=== PATIENT | male | born 1945 | race Caucasian/White ===

== ENCOUNTER 2019-11-29 11:06 | Outpatient (RCR) | payer OTHER, SELFPAY | END 2019-12-12 23:59 | disposition home or self-care (01) | LOC: PULRHB 11:06 | PROVIDERS: PCP Emergency Medicine Emergency Medical Services; Visit Provider Emergency Medicine Emergency Medical Services | DX: J44.9 Chronic obstructive pulmonary disease, unspecified (principal) | CPT/HCPCS: 94618; G0424 ==

== ENCOUNTER 2019-12-13 06:00 | Outpatient (RCR) | payer OTHER, SELFPAY | END 2020-01-12 23:59 | disposition home or self-care (01) | LOC: PULRHB 06:00 | PROVIDERS: PCP Emergency Medicine Emergency Medical Services; Visit Provider Emergency Medicine Emergency Medical Services | DX: J44.9 Chronic obstructive pulmonary disease, unspecified (principal) | CPT/HCPCS: G0424 ==

== ENCOUNTER 2019-12-22 08:25 | Inpatient (IN) | payer OTHER, MEDICARE, SELFPAY ==
[2019-12-22] VITALS (11 sets, daily range): BP systolic 106–148; BP diastolic 76–94; PULSE 58–133; RESP 16–24; TEMP 36.4–37.2; O2SAT 93–100; BMI 24.4
--- NOTE | 2019-12-22 08:49 | XRR_ITS ---
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 HX of chf. HX of rheumatic fever TECHNIQUE: Imaging protocol: XR of the chest Views: 1 view. COMPARISON: PA Chest 1 [place] [id number] 04/27/2018 11:31 AM FINDINGS: Lungs: Mild interstitial prominence, without acute airspace disease. Nonspecific 3 cm nodular density overlying the left hilar region, warranting CT correlation. Pleural space: No pleural effusion. Heart/Mediastinum: Cardiac silhouette upper limits of normal in size. Vasculature: Calcification of the thoracic aorta. Bones/joints: Osteopenia and degenerative change. XR/XR chest 1V portable [id number] IMPRESSION: Nonspecific 3 cm nodular density overlying the left hilar region, warranting CT correlation.
--- NOTE | 2019-12-22 08:49 | ECG_ITS ---
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 Measurements Intervals [place] Rate: 151 P: IN: -1 QRS: 34 QRSD: 94 T: 53 QT: 278 QTc: 442 Interpretive Statements ATRIAL FIBRILLATION WITH RAPID VENTRICULAR RESPONSE POSSIBLE RIGHT VENTRICULAR CONDUCTION DELAY [RSR (QR) IN V1/V2] ST DEPRESSION, CONSIDER SUBENDOCARDIAL INJURY [0.1+ mV ST DEPRESSION] CRITICAL TEST RESULT INTERPRETATION BASED ON A DEFAULT AGE OF 40 YEARS Compared to ECG 04/27/2018 12:04:05 ST (T wave) deviation now present Left ventricular hypertrophy no longer present T-wave abnormality no longer present Electronically Signed On 12-22-2019 19:04:52 CDT by Raiza Nelson M.D. [id number]
[2019-12-22 08:56] LABS: Basophils # 0.1 10^3/uL (0.0-0.1); Basophils % 0.7 %; Eosinophils # 0.2 10^3/uL (0.0-0.8); Eosinophils % 2.4 %; Hematocrit 36.6 % (42.0-52.0); Lymphocytes # 2.3 10^3/uL (0.8-4.8); Lymphocytes % 33.4 %; Mean Corpuscular HGB Conc 32.8 g/dL (30.0-36.0); Mean Corpuscular Hemoglobin 32.9 pg (28.0-34.0); Mean Corpuscular Volume 100.3 fL (80-94); Monocytes % 14.2 %; Neutrophils # 3.33 10^3/uL (1.8-7.7); Neutrophils % 49.2 %; Nucleated Red Blood Cells % 0 %; Platelet Count 259 10^3/cmm (130-400); Red Blood Count 3.65 10^6/uL (4.1-5.3); Red Cell Distribution Width 12.3 % (12.1-15.1); White Blood Count 6.8 10^3/uL (4.0-10.0)
--- NOTE | 2019-12-22 08:57 | ED_ITS ---
HPI - Chest Pain General: Chief Complaint: Chest Pain Stated Complaint: CP Time Seen by Provider: 12/22/19 08:40 History of Present Illness: HPI narrative: This patient is a 74-year-old male presenting with chest pain and shortness of breath. He reports that his chest pain started at about 2 in the morning. He felt like there was a building sitting on his chest. The pain builds and builds until it was a 10 out of 10. He took 2 nitroglycerin tablets which relieved the pain. He still has a slight bit of tightness in his chest and still feels quite short of breath. He did not want a bother anyone so he did not call for help or come to the hospital. He did go to physical therapy this morning and when he told them about the chest pain they immediately sent him to the ED. He said he is never really had this severe chest pain. He has had heart failure in the past. He is not sure if he has had atrial fibrillation but has been told that he had some sort of irregular heartbeat in the past. He has a history of rheumatic heart fever. He denies C OPD or asthma but does have a barrel chest and some clubbing of his fingernails. MD complaint: chest pain and chest heaviness Pertinent past history: other (CHF) Onset (ago): hour(s) (7) Timing of current episode: episodic and now resolved Prior episodes: No Onset: during rest and awoke with symptoms Pain radiation: none Severity: severe Quality: heaviness Relieving factors: nitroglycerin Exacerbating factors: exertion Associated symptoms: Deny abdominal pain, dyspnea, fever(s), nausea or vomiting Review of Systems General: Reports: 10 or more systems reviewed and unremarkable except in HPI and below Const: Denies: fever(s), chills, fatigue or malaise Eyes: Denies: change in vision ENMT: Denies: odynophagia Card: Denies: chest pain or swelling of feet/ankles Resp: Denies: dyspnea, productive cough or non-productive cough GI: Denies: abdominal pain, nausea or vomiting : Denies: flank pain Musc: Denies: neck pain or back pain Skin/Breast: Denies: rash Neuro: Denies: headache(s), numbness in extremities or weakness in extremities Fredi/Lymph: Denies: easy bruising or easy bleeding PFSH ED PFSH: Medical History (Updated 12/22/19 @ 13:02 by Jack Toney MD) Atrial fibrillation Chronic kidney disease COPD (chronic obstructive pulmonary disease) Hypertension Pulmonary nodule Surgical History (Updated 12/22/19 @ 12:57 by Jack Toney MD) History of shoulder surgery Family History (Updated 12/22/19 @ 13:09 by Jack Toney MD) Other CAD (coronary artery disease) Social History (Updated 12/22/19 @ 12:57 by Jack Toney MD) Smoking and tobacco status: former smoker Alcohol intake: current Alcohol intake frequency: 3 or more drinks per day Alcohol use comment: Approximately 5 beers every night Substance/Drug Use: never Physical Exam Const: COMMON NORMALS: no acute distress, patient oriented x3, no limitations and alert GENERAL APPEARANCE: cooperative and comfortable HENMT: HEAD & SCALP: normal to inspection FACE & SINUS: normal facial exam Eye: GENERAL EYE: appearance normal, both eyes and all related structures Neck/C-Spine: COMMON NORMALS: supple and no meningeal signs Chest: COMMONS NORMALS: normal inspection of the chest Resp: EFFORT & INSPECTION: Yes tachypneic AUSCULTATION: wheezes lower bilaterally Cardio: COMMON NORMALS: No murmurs present (Cardio) RATE: tachycardic RHYTHM: abnormal rhythm irregularly irregular GI: COMMON NORMALS: Normal to inspection, nondistended, normoactive bowel sounds present, Soft to palpation and non-tender INSPECTION: Yes normal to inspection AUSCULTATION: Yes normoactive bowel sounds PALPATION: Yes Soft to palpation Back/Pelvis: COMMON NORMALS: thoracic and lumbar spine normal to inspection Extremity: COMMON NORMALS: normal to inspection Neuro: COMMON NORMALS: patient oriented x3, moves all extremities, no focal motor deficits and no sensory deficits noted SENSORIUM/ORIENTATION: Yes alert MENINGEAL SIGNS: Yes no meningeal signs Psych: COMMON NORMALS: mental status grossly normal, cooperative and normal affect Skin: COMMON NORMALS: no rashes or lesions noted and turgor normal GENERAL SKIN EXAM: no rashes or lesions noted and turgor normal Course Reevaluation(s): Reevaluation #1: Patient is doing much better. He is on Cardizem with a heart rate between 101 110. Blood pressure is 123/89 although he has had some mild hypotension with systolics in the 90s. His chest pain is gone. The nurse in the ED told me that a caregiver of some kind had called her and told her that the patient was not taking his medications. He told me as well as the nurse that he was taking his medicines and I asked him specifically again. He does say he is taking his medications as prescribed. He did [facility] me [facility]. He said he is not able to stay off his oxygen for more than about an hour at a time. He is not sure why they were planning to take him off the oxygen. Time: 12:18 Vital Signs: Vital signs: Vital Signs Temperature 97.6 F 12/23/19 04:00 Pulse Rate 110 H 12/23/19 04:00 Respiratory Rate 18 12/23/19 04:00 Blood Pressure 126/70 12/23/19 04:00 Pulse Oximetry 18 L 12/23/19 04:00 MDM - Chest Pain MDM Narrative: Medical decision making narrative: Atrial fibrillation with RVR. Associated with some severe crushing chest pain during the night. This troponins are flat in the ED and his rate is fairly well controlled on Cardizem. Will admit him for further management of his symptoms and further evaluation of his chest pain. He is on Eliquis although there is some question about whether he has been taking it. He says he has and his INR is slightly elevated. He was given aspirin in the ED. His rate control medication is currently metoprolol. Lab Data: Labs: Lab Results 12/22/19 12/22/19 12/22/19 Range/Units 08:40 08:40 08:40 WBC 6.8 (4.0-10.0) 10^3/ uL RBC 3.65 L (4.1-5.3) 10^6/u L Hgb 12.0 (11.7-16.6) g/dL Hct 36.6 L (42.0-52.0) % MCV 100.3 H (80-94) fL MCH 32.9 (28.0-34.0) pg MCHC 32.8 (30.0-36.0) g/dL RDW 12.3 (12.1-15.1) % Plt Count 259 (130-400) 10^3/c mm MPV 10.0 (7.4-10.4) fL Neut % (Auto) 49.2 % Lymph % (Auto) 33.4 % [place] % (Auto) 14.2 % Eos % (Auto) 2.4 % Baso % (Auto) 0.7 % Neut # (Auto) 3.33 (1.8-7.7) 10^3/u L Lymph # (Auto) 2.3 (0.8-4.8) 10^3/u L [place] # (Auto) 1.0 H (0.2-0.9) 10^3/u L Eos # (Auto) 0.2 (0.0-0.8) 10^3/u L Baso # (Auto) 0.1 (0.0-0.1) 10^3/u L Nucleated RBC % (a uto) 0 % Nucleated RBCs # 0.0 /100WBC PT (10.5-13.3) SECO NDS INR (0.8-1.2) Sodium 135 L (136-145) mmol/L Potassium 4.4 (3.5-5.1) mmol/L Chloride 100 (98-107) mmol/L Carbon Dioxide 23 (22-29) mmol/L Anion Gap 16.4 (5-19) BUN 25 H (8-23) mg/dL Creatinine 1.5 H (0.7-1.2) mg/dL Glucose 131 H (65-115) mg/dL Estimat Average Gl ucose Hemoglobin A1c (4.0-6.0) % Calculated Osmolal ity 279 L (285-295) mOsm/k g Calcium 9.9 (8.5-10.5) mg/dL Magnesium (1.7-2.3) mg/dL Total Bilirubin 0.4 (0.15-1.2) mg/dL AST 24 (0-40) U/L ALT 15 (0-41) U/L Alkaline Phosphata se 89 (40-130) IU/L Troponin T Baselin e 21 H (0-15) ng/L Troponin T 120 Min [place] (0-15) ng/L Delta Troponin T (0-10) ABS# NT-Pro-B Natriuret Pep 5845 H (0-125) pg/mL Total Protein 7.3 (6.6-8.7) g/dL Albumin 4.6 (3.5-5.2) g/dL Globulin 2.7 (1.3-4.6) g/dL TSH (0.27-4.20) uIU/ mL 12/22/19 12/22/19 12/22/19 Range/Units 08:40 08:52 08:52 WBC (4.0-10.0) 10^3/ uL RBC (4.1-5.3) 10^6/u L Hgb (11.7-16.6) g/dL Hct (42.0-52.0) % MCV (80-94) fL MCH (28.0-34.0) pg MCHC (30.0-36.0) g/dL RDW (12.1-15.1) % Plt Count (130-400) 10^3/c mm MPV (7.4-10.4) fL Neut % (Auto) % Lymph % (Auto) % [place] % (Auto) % Eos % (Auto) % Baso % (Auto) % Neut # (Auto) (1.8-7.7) 10^3/u L Lymph # (Auto) (0.8-4.8) 10^3/u L [place] # (Auto) (0.2-0.9) 10^3/u L Eos # (Auto) (0.0-0.8) 10^3/u L Baso # (Auto) (0.0-0.1) 10^3/u L Nucleated RBC % (a uto) % Nucleated RBCs # /100WBC PT 15.40 H (10.5-13.3) SECO NDS INR 1.18 (0.8-1.2) Sodium (136-145) mmol/L Potassium (3.5-5.1) mmol/L Chloride (98-107) mmol/L Carbon Dioxide (22-29) mmol/L Anion Gap (5-19) BUN (8-23) mg/dL Creatinine (0.7-1.2) mg/dL Glucose (65-115) mg/dL Estimat Average Gl ucose 105 Hemoglobin A1c 5.3 (4.0-6.0) % Calculated Osmolal ity (285-295) mOsm/k g Calcium (8.5-10.5) mg/dL Magnesium 2.1 (1.7-2.3) mg/dL Total Bilirubin (0.15-1.2) mg/dL AST (0-40) U/L ALT (0-41) U/L Alkaline Phosphata se (40-130) IU/L Troponin T Baselin e (0-15) ng/L Troponin T 120 Min [place] (0-15) ng/L Delta Troponin T (0-10) ABS# NT-Pro-B Natriuret Pep (0-125) pg/mL Total Protein (6.6-8.7) g/dL Albumin (3.5-5.2) g/dL Globulin (1.3-4.6) g/dL TSH 1.19 (0.27-4.20) uIU/ mL 12/22/19 Range/Units 10:36 WBC (4.0-10.0) 10^3/ uL RBC (4.1-5.3) 10^6/u L Hgb (11.7-16.6) g/dL Hct (42.0-52.0) % MCV (80-94) fL MCH (28.0-34.0) pg MCHC (30.0-36.0) g/dL RDW (12.1-15.1) % Plt Count (130-400) 10^3/c mm MPV (7.4-10.4) fL Neut % (Auto) % Lymph % (Auto) % [place] % (Auto) % Eos % (Auto) % Baso % (Auto) % Neut # (Auto) (1.8-7.7) 10^3/u L Lymph # (Auto) (0.8-4.8) 10^3/u L [place] # (Auto) (0.2-0.9) 10^3/u L Eos # (Auto) (0.0-0.8) 10^3/u L Baso # (Auto) (0.0-0.1) 10^3/u L Nucleated RBC % (a uto) % Nucleated RBCs # /100WBC PT (10.5-13.3) SECO NDS INR (0.8-1.2) Sodium (136-145) mmol/L Potassium (3.5-5.1) mmol/L Chloride (98-107) mmol/L Carbon Dioxide (22-29) mmol/L Anion Gap (5-19) BUN (8-23) mg/dL Creatinine (0.7-1.2) mg/dL Glucose (65-115) mg/dL Estimat Average Gl ucose Hemoglobin A1c (4.0-6.0) % Calculated Osmolal ity (285-295) mOsm/k g Calcium (8.5-10.5) mg/dL Magnesium (1.7-2.3) mg/dL Total Bilirubin (0.15-1.2) mg/dL AST (0-40) U/L ALT (0-41) U/L Alkaline Phosphata se (40-130) IU/L Troponin T Baselin e (0-15) ng/L Troponin T 120 Min [place] 17.47 H (0-15) ng/L Delta Troponin T -3.53 L (0-10) ABS# NT-Pro-B Natriuret Pep (0-125) pg/mL Total Protein (6.6-8.7) g/dL Albumin (3.5-5.2) g/dL Globulin (1.3-4.6) g/dL TSH (0.27-4.20) uIU/ mL EKG Data^: EKG 1: EKG interpretation date: 12/22/19 EKG interpretation time: 08:45 Interpretation: Atrial fibrillation with RVR at a rate of 151. Narrow QRS. Diffuse ST depression likely related to rate. EKG 2: EKG interpretation date: 12/22/19 EKG interpretation time: 12:29 Interpretation: Rate is 88. Rhythm is atrial fibrillation. QRS is narrow. QTc is normal. There is moderate ST depression particularly in the precordial leads and slight depression in the inferior leads. No acute ST elevation. 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
[2019-12-22] MEDS: aspirin 81 mg Chew Tablet 324 MG PO (09:09)
[2019-12-22] MEDS: sodium chloride 0.9% 250 ML 999 ML IV (09:10)
[2019-12-22 09:31] LABS: Troponin(5th) Baseline 21 ng/L (0-15)
[2019-12-22 10:11] LABS: Alanine Aminotransferase 15 U/L (0-41); Albumin Level 4.6 g/dL (3.5-5.2); Alkaline Phosphatase 89 IU/L (40-130); Anion Gap 16.4 (5-19); Aspartate Amino Transferase 24 U/L (0-40); Blood Urea Nitrogen 25 mg/dL (8-23); Calcium 9.9 mg/dL (8.5-10.5); Carbon Dioxide 23 mmol/L (22-29); Chloride 100 mmol/L (98-107); Globulin 2.7 g/dL (1.3-4.6); Glucose 131 mg/dL (65-115); NT Pro B Type Natriuretic Pept 5845 pg/mL (0-125); Osmolality Calculated 279 mOsm/kg (285-295); Potassium 4.4 mmol/L (3.5-5.1); Sodium 135 mmol/L (136-145); Total Bilirubin 0.4 mg/dL (0.15-1.2); Total Protein 7.3 g/dL (6.6-8.7)
--- NOTE | 2019-12-22 10:49 | ECG_ITS ---
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 Measurements Intervals [place] Rate: 88 P: RI: -1 QRS: 45 QRSD: 83 T: 55 QT: 369 QTc: 449 Interpretive Statements ATRIAL FIBRILLATION MODERATE ST DEPRESSION [0.05+ mV ST DEPRESSION] Compared to ECG 12/22/2019 08:45:34 No significant changes Electronically Signed On 12-22-2019 19:06:31 CDT by Raiza Nelson M.D. [email or web address]
[2019-12-22 11:21] LABS: Troponin 5 2HR 17.47 ng/L (0-15)
[2019-12-22 11:22] LABS: Troponin 5 2HR Delta -3.53 ABS# (0-10)
--- NOTE | 2019-12-22 11:27 | PC.NURSE ---
reports pt fell over a year ago in Jul. Then fell again over a month ago. At the time of the fall, he had double vision, and headace. He did not go checked out. Since that fall he has continued to have headace. Also got new glasses yesterday.
[2019-12-22 12:13] LABS: INR 1.18 (0.8-1.2)
--- NOTE | 2019-12-22 12:53 | PM.HP ---
Providers/Chief Complaint Admitting Physician: Jack Toney MD Primary Care Provider: Michael Louis DO Chief Complaint: CP History of Present Illness Suresh Riley is a 74 year old male that reports he woke up this morning with a heaviness of his chest and palpitations. He believes this was around 2 AM. It was associated with shortness of breath but he reports no nausea, diaphoresis. He went to rehabilitation this morning and was found to have an irregular fast heart rate and was immediately referred to the ER. No recent cough fever, or COVID exposure. Reports no blood in his stool black or tarry stools or hematemesis. Reports he does not usually have any chest discomfort. Denies any history of myocardial infarction. Reports that he does have some chronic lung disease for which he uses oxygen he is not sure of the liter requirement. He believes he has COPD. Cardizem drip was started in the emergency department with decrease in heart rate. Patient denies any chest discomfort currently. Review of Systems General: Reports: 10 or more systems reviewed and unremarkable except in HPI and below Const: Denies: fever(s) or chills Eyes: Denies: change in vision ENMT: Denies: throat pain Card: Reports: chest pain and irregular heart rhythm Resp: Reports: dyspnea; Denies: wheezing GI: Denies: abdominal pain : Denies: flank pain Musc: Denies: neck pain Skin/Breast: Denies: rash Neuro: Denies: headache(s) Psych: Denies: anxiety or depression Endo: Denies: polyuria Fredi/Lymph: Denies: easy bruising All/Imm: Denies: urticaria Medications/Allergies Home Medications Medication Instructions Recorded Confirmed Last Taken Type amlodipine 5 mg PO DAILY 12/22/19 12/22/19 12/22/19 History apixaban 5 mg PO BID 12/22/19 12/22/19 12/22/19 History cholecalciferol (vitamin D3) 1 tab PO DAILY 12/22/19 12/22/19 12/22/19 History furosemide [Lasix] 40 mg PO DAILY 12/22/19 12/22/19 12/22/19 History losartan 100 mg PO DAILY 12/22/19 12/22/19 12/22/19 History metoprolol tartrate 25 mg PO DAILY 12/22/19 12/22/19 12/22/19 History Allergies Allergy/AdvReac Type Severity Reaction Status Date / Time No Known Allergies Allergy Verified 12/22/19 08:39 PFSH Acute PFSH: Medical History (Updated 12/22/19 @ 13:02 by Jack Toney MD) Atrial fibrillation Chronic kidney disease COPD (chronic obstructive pulmonary disease) Hypertension Pulmonary nodule Surgical History (Updated 12/22/19 @ 12:57 by Jack Toney MD) History of shoulder surgery Family History (Updated 12/22/19 @ 13:09 by Jack Toney MD) Other CAD (coronary artery disease) Social History (Updated 12/22/19 @ 12:57 by Jack Toney MD) Smoking and tobacco status: former smoker Alcohol intake: current Alcohol intake frequency: 3 or more drinks per day Alcohol use comment: Approximately 5 beers every night Substance/Drug Use: never Vitals/I&O/Wt Last Vital Signs Temp 97.9 F 12/22/19 08:32 Pulse 105 H 12/22/19 12:16 Resp 16 12/22/19 12:16 BP 123/89 12/22/19 12:16 Pulse Ox 100 12/22/19 12:16 Weight last 48 hrs Weight 79.379 kg Physical Exam Narrative: EXAM NARRATIVE: General exam is a white male, no apparent distress. Currently on a Cardizem drip. Heart rate is 100. HEENT: Pupils equally round. Oropharynx clear. Neck is supple no lymphadenopathy or thyromegaly Cardiovascular irregular, irregular with controlled rate. No murmur Lungs clear no wheezing or crackles. Diminished breath sounds bilaterally. Abdomen is soft and was nontender with positive bowel sounds. No obvious organomegaly was deferred Extremities trace edema on the left. Right without edema. Pulses intact. No cyanosis or clubbing. Skin no rash Neuro no focal deficits Data : 12/22/19 08:40 12/22/19 08:40 Other data: LFTs normal. Troponin slightly high at 21 at baseline, recheck 17 Chest x-ray nodule left hilum. I believe this was seen before in a previous x-ray. On investigation CT scan about 6 months ago demonstrated an upper lobe nodule that needs follow-up soon. EKG demonstrated atrial fibrillation with rapid ventricular rate, 151, with some slight ST depression V4 through 6 and normal axis. A&P Assessment and plan (1) Atrial fibrillation: With rapid ventricular rate Cardizem initiated in the ER We will start patient's metoprolol, higher dose 25 mg twice daily and try to wean off Cardizem after he receives this tonight Continue Eliquis for stroke prevention Check TSH, magnesium Check echocardiogram Status: Acute (2) Elevated troponin: Appears to be type II Aspirin 81 mg daily Serial troponins Status: Acute (3) Chest pain: Resolved. Related to accelerated heart rate Could consider outpatient nuclear stress test Status: Acute Additional A&P Information COPD, no evidence of exacerbation. Reports he uses home oxygen Significant alcohol intake. Monitor for withdrawal. Initiate thiamine p.o. Mildly elevated glucose. Check A1c Hypertension. Continue ARB, lower dose. Hold Norvasc as rate limiting medicines may need to be increased to control atrial fibrillation. Past history of tobacco use Full code Eliquis will suffice for DVT prophylaxis Attestations Medical Necessity Statement*: Will need greater than 2 midnight stay for treatment of atrial fibrillation with rapid ventricular rate. 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
--- NOTE | 2019-12-22 13:30 | USCV_ITS ---
Suresh Riley Age: 74 Gender: M : 1945 Exam Date: 12/22/2019 14:55 Ordering Phys: Jack Toney MD Technologist: Francesca Montes Exam Location: [facility] [place] Indication: a fib BP: 116 / 78 HR: 77 Rhythm: Atrial fibrillation Technical Quality: Adequate MEASUREMENTS (Male / Female) Normal Values 2D ECHO LV Diastolic Diameter PLAX 5.9 cm 4.2 - 5.9 / 3.9 - 5.3 cm LV Systolic Diameter PLAX 4.5 cm IVS Diastolic Thickness 1.3 cm 0.6 - 1.0 / 0.6 - 0.9 cm IVS Systolic Thickness 1.8 cm LVPW Diastolic Thickness 1.2 cm 0.6 - 1.0 / 0.6 - 0.9 cm LVPW Systolic Thickness 2.0 cm LVOT Diameter 2.0 cm LV Ejection Fraction 2D Teich 44.1 % LV Ejection Fraction MOD 2C 61.4 % LV Ejection Fraction 2C AL 62.6 % LA Diameter 3.6 cm LA Width 3.4 cm LA Height 6.4 cm RA Width 3.4 cm RA Height 4.3 cm M-MODE LV Diastolic Diameter MM 5.1 cm 4.2 - 5.9 / 3.9 - 5.3 cm LV Systolic Diameter MM 3.2 cm LV Ejection Fraction MM Teich 67.0 % IVS Diastolic Thickness MM 0.9 cm 0.6 - 1.0 / 0.6 - 0.9 cm IVS Systolic Thickness MM 1.5 cm LVPW Diastolic Thickness MM 1.2 cm 0.6 - 1.0 / 0.6 - 0.9 cm LVPW Systolic Thickness MM 1.1 cm Aortic Annulus Diameter 4.0 cm LA Ao Ratio MM 1.0 MV E Point Septal Separation 0.6 cm DOPPLER AV Peak Velocity 160.0 cm/s LVOT Peak Velocity 88.0 cm/s AV Area Cont Eq vti 1.5 cm squared AV Area Cont Eq pk 1.7 cm squared MV Peak Velocity 104.0 cm/s MV Area PHT 4.2 cm squared Mitral E to A Ratio 2.0 MV E' Velocity 13.0 cm/s Mitral E to MV E' Ratio 9.0 Mitral E to LV E' Lateral Ratio 6.7 Mitral E to LV E' Septal Ratio 13.6 TR Peak Velocity 179.0 cm/s TR Peak Gradient 12.8 mmHg Right Atrial Pressure 3.0 mmHg Pulmonary Artery Systolic Pressu 15.8 mmHg PV Peak Velocity 70.0 cm/s RV Acceleration Time 0.1 s FINDINGS Left Ventricle Normal left ventricular cavity size. Normal left ventricular systolic function. No regional wall motion abnormalities. Left ventricular ejection fraction is estimated at 67%. Grade II/IV diastolic dysfunction, moderately elevated filling pressures. Right Ventricle The right ventricle is normal in size and function. Right Atrium The right atrium is normal in size. Left Atrium Mildly increased left atrial size. Mitral Valve Structurally normal mitral valve without significant stenosis or prolapse. There is no mitral regurgitation. Aortic Valve Moderate aortic valve calcification. No aortic valve stenosis. Mild aortic valve regurgitation. Tricuspid Valve Mild tricuspid valve regurgitation. Pulmonic Valve Structurally normal pulmonic valve without significant stenosis. There is no pulmonic regurgitation. Pericardium Normal pericardium without effusion. Aorta Normal ascending aorta dimension. CONCLUSIONS 1-Normal left ventricular cavity size. Normal left ventricular systolic function. No regional wall motion abnormalities. Left ventricular ejection fraction is estimated at 67%. Grade II/IV diastolic dysfunction, moderately elevated filling pressures. 2-Mildly increased left atrial size. 3-Moderate aortic valve calcification. No aortic valve stenosis. Mild aortic valve regurgitation. 4-Mildly increased left atrial size. 5-Mild tricuspid valve regurgitation. 6-There is no pericardial effusion. 7-Right atrial pressure is around 5 mm of mercury. 8-There are no prior echocardiogram studies to compare. Raiza Nelson MD (Electronically Signed) Final Date: 25 December 2019 17:26 S
--- NOTE | 2019-12-22 13:31 | PC.RESP ---
Smoking Cessation information has been given to patient and he is starting a Smoking Cessation class in January 2020. Patient is currently enrolled in Pulmonary Rehab and has been actively attending.
[2019-12-22 14:14] LABS: Magnesium 2.1 mg/dL (1.7-2.3); Thyroid Stimulating Hormone 1.19 uIU/mL (0.27-4.20)
--- NOTE | 2019-12-22 14:49 | ECG_ITS ---
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 Measurements Intervals [place] Rate: 63 P: TN: -1 QRS: 16 QRSD: 85 T: 47 QT: 408 QTc: 420 Interpretive Statements ATRIAL FIBRILLATION MINIMAL ST DEPRESSION [0.025+ mV ST DEPRESSION] ABNORMAL RHYTHM ECG Compared to ECG 12/22/2019 12:33:49 No significant changes Electronically Signed On 12-22-2019 19:06:40 CDT by Raiza Nelson M.D. [email or web address]
[2019-12-22 15:08] LABS: Troponin 5 6HR 15.54 ng/L (0-15)
[2019-12-22 15:10] LABS: Troponin 5 6HR Delta -5.46 ng/L (0-12)
[2019-12-22 17:26] LABS: Estmated Average Glucose 105; Hemoglobin A1C 5.3 % (4.0-6.0)
[2019-12-22] MEDS: metoprolol tartrate 25 mg Tablet PO (17:38)
[2019-12-22] MEDS: apixaban 5 mg Tablet PO (17:38)
--- NOTE | 2019-12-22 19:28 | PC.NURSE ---
Rounded on patient and patient is resting in bed and watching tv. Patient cardizem drip stopped at this time due to heartrate being 65 to 70 bpm. no complaints pf pain at this time.
[2019-12-23] VITALS (8 sets, daily range): BP systolic 107–126; BP diastolic 68–90; PULSE 79–136; RESP 16–25; TEMP 36.4–37.1; O2SAT 18–99
--- NOTE | 2019-12-23 02:51 | PC.NURSE ---
Patient heart rhythm remains in atrial fibrillation. Patient with movement heart rate with jump up to 140 bpm trend down to [address] Berg about patients heart rate. Provider stated she would put in orders. Will continue to monitor.
[2019-12-23] MEDS: metoprolol tartrate 1 mg/1 mL SDV 5 mL 2.5 MG IV (02:58)
[2019-12-23 04:02] LABS: Basophils % 0.5 %; Eosinophils # 0.2 10^3/uL (0.0-0.8); Eosinophils % 2.1 %; Hematocrit 33.4 % (42.0-52.0); Hemoglobin 10.9 g/dL (11.7-16.6); Lymphocytes # 2.1 10^3/uL (0.8-4.8); Lymphocytes % 24.6 %; Mean Corpuscular HGB Conc 32.6 g/dL (30.0-36.0); Mean Corpuscular Volume 101.2 fL (80-94); Mean Platelet Volume 10.1 fL (7.4-10.4); Monocytes % 12.1 %; Neutrophils # 5.09 10^3/uL (1.8-7.7); Neutrophils % 60.3 %; Nucleated Red Blood Cells % 0 %; Platelet Count 235 10^3/cmm (130-400); Red Cell Distribution Width 12.5 % (12.1-15.1); White Blood Count 8.4 10^3/uL (4.0-10.0)
--- NOTE | 2019-12-23 04:11 | PC.NURSE ---
Contacted Dr. Berg regarding patients heart rate still fluctuating between 110 and 135 bpm. Patient is not sustaining anything for any length of time and no complaints of chest pain or palpitations. Will continue to monitor patient unless new orders arrive.
[2019-12-23 04:30] LABS: Blood Urea Nitrogen 27 mg/dL (8-23); Calcium 9.2 mg/dL (8.5-10.5); Carbon Dioxide 26 mmol/L (22-29); Chloride 101 mmol/L (98-107); Glucose 115 mg/dL (65-115); Osmolality Calculated 280 mOsm/kg (285-295); Sodium 136 mmol/L (136-145)
--- NOTE | 2019-12-23 05:41 | PC.NURSE ---
End of shift PAtient remains alert and oriented at this time. Patient heart rate is 105 bpm. Patient denies any complaints of pain at this time. Patient has had a uneventful shift and rested well. Will continue to monitor.
--- NOTE | 2019-12-23 06:20 | PC.NURSE ---
Contacted Dr. Berg regarding patients Heart rate fluctuating between 120 and 140 and not recovering as fast. Asked about giving morning medications early. Provider said she will look at medications and adjust times. Will await orders. Will continue to monitor.
[2019-12-23] MEDS: metoprolol tartrate 25 mg Tablet PO ×2 (06:24→07:42)
[2019-12-23] MEDS: apixaban 5 mg Tablet PO ×2 (09:59→18:17)
[2019-12-23] MEDS: thiamine 100 mg Tablet PO (09:59)
[2019-12-23] MEDS: aspirin 81 mg EC Tablet PO (09:59)
[2019-12-23] MEDS: losartan 50 mg Tablet PO (09:59)
[2019-12-23] MEDS: FUROsemide 40 mg Tablet PO (09:59)
--- NOTE | 2019-12-23 12:42 | P.PN_ITS ---
Subjective Subjective: Interval history: Reports he feels okay currently. Can feel some palpitations. I have visited him in the morning when his heart rate is gone back up. This afternoon he has drifted down to around 100 but increases rapidly to 130 with any kind of exertion. Medications: Reviewed: Yes Vitals/I&O/Wt Last Vital Signs Temp 98.0 F 12/23/19 12:00 Pulse 93 12/23/19 12:00 Resp 18 12/23/19 12:00 BP 120/77 12/23/19 12:00 Pulse Ox 96 12/23/19 12:00 12/22/19 12/23/19 12/23/19 22:59 06:59 14:59 Intake Total 271.5 / 271.5 360 / 631.5 360 / 360 Output Total 710 / 710 750 / 1460 Balance -438.5 / -438.5 -390 / -828.5 360 / 360 Weight last 48 hrs Weight 79.379 kg Physical Exam Narrative: EXAM NARRATIVE: General exam is a white male, no apparent distress. Cardiovascular irregular, irregular with rate of approximately 105 and no murmur Lungs clear no wheezing or crackles. Diminished breath sounds bilaterally. Abdomen is soft and was nontender with positive bowel sounds. No obvious organomegaly Extremities with no cyanosis clubbing or edema Data : 12/23/19 03:35 12/23/19 03:35 A&P Assessment and plan (1) Atrial fibrillation: With rapid ventricular rate initially Metoprolol has been increased to 50 mg twice daily. He is still running somewhat high. Add diltiazem 30 mg every 8 hours We will try to avoid digoxin secondary to creatinine elevation Await echocardiogram Continue Eliquis TSH and magnesium level were checked and normal I have discontinued his Norvasc, and reduced his losartan significantly to try to prevent hypotension with medication adjustments Status: Acute (2) Elevated troponin: Appears to be type II Aspirin 81 mg daily Serial troponins Status: Acute (3) Chest pain: Resolved. Related to accelerated heart rate Could consider outpatient nuclear stress test Status: Acute Additional A&P Information COPD, no evidence of exacerbation. Reports he uses home oxygen Significant alcohol intake. Monitor for withdrawal. Initiate thiamine p.o. I see no indication of withdrawal currently. Mildly elevated glucose. Check A1c Hypertension. Continue ARB, lower dose. Norvasc discontinued as metoprolol increased and Cardizem being added. Past history of tobacco use Full code Eliquis will suffice for DVT prophylaxis Attestations Medical Necessity Statement*: Needs continued hospitalization for further adjustment of medication for atrial fibrillation with rapid ventricular rate. Coding Level of Care Code Acute Manager Respiratory for g Fwd Diagnoses Atrial fibrillation I48.91 Elevated troponin R79.89 Chest pain R07.9
[2019-12-23] MEDS: dilTIAZem 30 mg Tablet PO ×2 (13:13→18:17)
--- NOTE | 2019-12-23 13:54 | PC.CHAP ---
Pastoral Care Encounter/Spiritual Assessment Type of Contact [] Declined geopolitics teacher visit [] Patient/Family/Request visit [] Outpatient visit [] Follow-up visit [] Physician referral [] Code/Alert [X] Routine visit [] Staff referral [] Actively dying [] Patient sleeping [] Family support [] [] Out of room [] Palliative care [] [] Receiving care in room [] Pre-surgical visit [] Trauma [] Long length of stay [] ICU visit [] Other: Relational/Emotional Strength [] Patient feels connected with others/family/visitors/staff [] Distress [] Loneliness/isolation [] Abandonment Spirituality of Patient [] Person of [place] [] Attends Church of their [place]ia [] Believes in Prayer [] Reads Bible or Methodist materials [] There are Spiritual issues to be addressed Flower Stripper Interventions [] Prayer [] Active listening [] Non-anxious presence [] Spiritual/emotional support [] Crisis/trauma care [] Spiritual counseling [] Bereavement support [] Provided bereavement packet [] Provided Bible/devotional materials [] Provided toy/stuffed animal, coloring book to patient or family member [] Provided Communion [] Anointing/[place] [] Salvation [] Completed spiritual assessment [] Other: Impact on Illness or Injury [] Angry [] Fearful [] Anxious [] Often cries [] Exhaustion [] Unable to work [] Unable to attend methodist [] Unable to walk/stand [] Unable to read [] Unable to drive [] Unable to eat/drink [] Unable to sleep [] Unable to be with family [] Patient intubated [] Other: Summary Time spent with patient
[2019-12-23] MEDS: metoprolol tartrate 50 mg Tablet PO (18:17)
--- NOTE | 2019-12-23 18:21 | PC.NURSE ---
pt has episodes of rapid afib with rates 130's to 160...when stands to urinate.pt does become diaphoretic..but no sob and bp remains stable.hr decreases to 90's-110 when returns to bed.medication adjustments made today.
--- NOTE | 2019-12-23 20:43 | PC.NURSE ---
Rounding: Patient is resting in bed. Patient denies any pain or needs at this time. Patient call light is within reach and bed in low postion with side rails up x2. Patient is alert and oriented at this time. Will continue to monitor.
[2019-12-24] MEDS: dilTIAZem 30 mg Tablet PO ×2 (02:22→06:23)
[2019-12-24 03:42] LABS: Basophils % 0.5 %; Eosinophils # 0.2 10^3/uL (0.0-0.8); Eosinophils % 2.8 %; Hematocrit 34.3 % (42.0-52.0); Hemoglobin 11.1 g/dL (11.7-16.6); Lymphocytes # 2.4 10^3/uL (0.8-4.8); Lymphocytes % 31.4 %; Mean Corpuscular HGB Conc 32.4 g/dL (30.0-36.0); Mean Corpuscular Hemoglobin 33.4 pg (28.0-34.0); Mean Corpuscular Volume 103.3 fL (80-94); Mean Platelet Volume 9.9 fL (7.4-10.4); Monocytes # 0.9 10^3/uL (0.2-0.9); Monocytes % 11.7 %; Neutrophils # 4.16 10^3/uL (1.8-7.7); Neutrophils % 53.5 %; Nucleated Red Blood Cells % 0 %; Platelet Count 226 10^3/cmm (130-400); Red Blood Count 3.32 10^6/uL (4.1-5.3); Red Cell Distribution Width 12.4 % (12.1-15.1); White Blood Count 7.8 10^3/uL (4.0-10.0)
[2019-12-24 03:54] VITALS: BP 101/66; PULSE 65; RESP 21; TEMP 36.8; O2SAT 98
[2019-12-24 04:07] LABS: Anion Gap 13.2 (5-19); Blood Urea Nitrogen 29 mg/dL (8-23); Calcium 9.1 mg/dL (8.5-10.5); Carbon Dioxide 26 mmol/L (22-29); Chloride 102 mmol/L (98-107); Glucose 107 mg/dL (65-115); Magnesium 2.1 mg/dL (1.7-2.3); Osmolality Calculated 282 mOsm/kg (285-295); Potassium 4.2 mmol/L (3.5-5.1); Sodium 137 mmol/L (136-145)
--- NOTE | 2019-12-24 06:03 | PC.NURSE ---
End of shift: PAtient has rested well this shift. Patient has had no complaints of palpitations or pain. Patient remains alert and oriented. Call light is within reach, bed in low position, and side rails up x2. Will continue to monitor.
[2019-12-24] MEDS: metoprolol tartrate 50 mg Tablet PO (06:23)
[2019-12-24 07:14] VITALS: BP 102/52; PULSE 71; RESP 15; TEMP 36.7; O2SAT 96
--- NOTE | 2019-12-24 08:13 | PC.NURSE ---
pt wall [facility] hallway on [facility] assment heart rate high as 106
[2019-12-24 09:01] VITALS: PULSE 71; RESP 16; O2SAT 98
[2019-12-24] MEDS: thiamine 100 mg Tablet PO (09:22)
[2019-12-24] MEDS: aspirin 81 mg EC Tablet PO (09:22)
[2019-12-24] MEDS: FUROsemide 40 mg Tablet PO (09:22)
[2019-12-24] MEDS: apixaban 5 mg Tablet PO (09:22)
[2019-12-24 10:59] VITALS: BP 112/72; PULSE 86; RESP 18; TEMP 36.4; O2SAT 93
[2019-12-24] MEDS: dilTIAZem ER (24HR) 120 mg Capsule PO (11:36)
--- NOTE | 2019-12-24 13:29 | PM.DCS ---
Discharge Providers Date of Admission: 12/22/19 11:45 Date of Discharge: December 24, 2019 Attending Provider at Admission: Jack Toney MD Attending Provider at Discharge: Jack Toney MD Primary Care Provider: Michael Louis DO Diagnoses at Discharge Discharge Diagnosis (1) Atrial fibrillation: Status: Acute Problem details: Rate controlled on metoprolol and Cardizem (2) Elevated troponin: Status: Acute Problem details: Type II. Nuclear stress test as an outpatient (3) Chest pain: Status: Acute Problem details: Resolved Reason for Visit Reason for Visit: CP Hospital Course Hospital Course: Suresh is a 74-year-old white male who presents with palpitations and chest discomfort. He was found to be in atrial fibrillation with rapid ventricular rate. Troponin was high but had no significant delta. EKG demonstrated nonspecific ST-T wave changes associated with his atrial fibrillation. He was placed in the hospital on a Cardizem drip. His Eliquis was continued for anticoagulation. His metoprolol was increased. This did not control his rhythm adequately so Cardizem was added at 30 mg every 6 hours, and converted to Cardizem CD at 120 mg daily. With these medicines his heart rate was controlled at 85, and even with ambulation heart rate was less than 110. As his heart rate was stable and he had no chest discomfort and troponin showed no significant delta he was discharged home on December 23 for follow-up with cardiology as well as his primary care provider. He will get a nuclear stress test as an outpatient secondary to chest discomfort and elevated troponin. He will return for any chest discomfort. Physical Exam Narrative: EXAM NARRATIVE: General exam no apparent distress Cardiovascular irregular irregular with controlled rate Lungs clear Abdomen is soft with positive bowel sounds Extremities no cyanosis clubbing or edema Discharge Data Data Completed and Pending: Completed Studies During Hospitalization Category Date Time Status XR chest 1V galileo ble [id number] Stat Exams 12/22/19 08:49 Completed Pending at discharge Category Date Time Status CV echo complete* [id number] Routine Ultrasound 12/22/19 13:30 Taken Labs from last 24 hours 12/24/19 12/24/19 03:22 03:22 WBC 7.8 RBC 3.32 L Hgb 11.1 L Hct 34.3 L MCV 103.3 H MCH 33.4 MCHC 32.4 RDW 12.4 Plt Count 226 MPV 9.9 Neut % (Auto) 53.5 Lymph % (Auto) 31.4 [place] % (Auto) 11.7 Eos % (Auto) 2.8 Baso % (Auto) 0.5 Neut # (Auto) 4.16 Lymph # (Auto) 2.4 [place] # (Auto) 0.9 Eos # (Auto) 0.2 Baso # (Auto) 0.0 Nucleated RBC % (a uto) 0 Nucleated RBCs # 0.0 Sodium 137 Potassium 4.2 Chloride 102 Carbon Dioxide 26 Anion Gap 13.2 BUN 29 H Creatinine 1.7 H Glucose 107 Calculated Osmolal ity 282 L Calcium 9.1 Magnesium 2.1 Vitals: Last Vital Signs Temp 97.6 F 12/24/19 10:59 Pulse 86 12/24/19 10:59 Resp 18 12/24/19 10:59 BP 112/72 12/24/19 10:59 Pulse Ox 93 12/24/19 10:59 Discharge Plan Discharge Patient Disposition: Home, Self-Care Condition: Stable Prescriptions: New aspirin 81 mg Tablet,Delayed Release (Dr/Ec) 81 mg PO DAILY Qty: 30 RF: 0 metoprolol tartrate 50 mg Tablet 50 mg PO Q12H Qty: 60 RF: 0 diltiazem HCl 120 mg Capsule,Extended Release 24hr 120 mg PO DAILY Qty: 30 RF: 0 Continued furosemide [Lasix] 40 mg Tablet 40 mg PO DAILY RF: 0 apixaban 5 mg Tablet 5 mg PO BID RF: 0 cholecalciferol (vitamin D3) 1 tab PO DAILY RF: 0 Discontinued amlodipine 5 mg Tablet 5 mg PO DAILY RF: 0 losartan 100 mg Tablet 100 mg PO DAILY RF: 0 metoprolol tartrate 25 mg Tablet 25 mg PO DAILY RF: 0 Referrals: Raiza Nelson MD [Physician] - 2 weeks Michael Louis DO [Primary Care Provider] - 4-7 days Discharge Diet: Cardiac Discharge Activity: Increase activity as tolerated Activity Restrictions/Additional Instructions: Resume your home oxygen at 2 L Return for any chest discomfort Nuclear stress test to be arranged later this week. Discharge Attestations Time Spent in Discharge Care*: greater than 30 min Quality Metrics Clinical Quality Measures During this hospital stay, did patient experience: None Coding Level of Care Code Acute Seating Captain for [facility] Fwd Diagnoses Atrial fibrillation I48.91 Elevated troponin R79.89 Chest pain R07.9
[2019-12-24 13:55] VITALS: BP 112/72; PULSE 86; RESP 18; TEMP 36.4; O2SAT 93
== END 2019-12-24 15:14 | disposition home or self-care (01) | DRG 282 ==
LOC: ER 09:08 → CSU 12:16
PROVIDERS: Admitting Provider Internal Medicine; Emergency Provider Emergency Medicine; PCP Emergency Medicine Emergency Medical Services; Visit Provider Internal Medicine
DX: I48.91 Unspecified atrial fibrillation (principal); I21.A1 Myocardial infarction type 2; Z79.01 Long term (current) use of anticoagulants; J44.9 Chronic obstructive pulmonary disease, unspecified; Z87.891 Personal history of nicotine dependence; F10.229 Alcohol dependence with intoxication, unspecified; N18.9 Chronic kidney disease, unspecified; I12.9 Hypertensive chronic kidney disease with stage 1 through stage 4 chronic kidney disease, or unspecified chronic kidney disease
CPT/HCPCS: 12345; 36415; 71045; 80048; 80053; 83036; 83735; 83880; 84443; 84484; 85025; 85610; 93005; 93306; 96375; 99283; J3490; J7050

== ENCOUNTER 2020-01-30 20:00 | Outpatient (CLI) | payer OTHER, SELFPAY | END 2020-01-30 20:01 | disposition home or self-care (01) | LOC: SLEEP 01-31 11:18 | PROVIDERS: PCP Emergency Medicine Emergency Medical Services; Visit Provider Emergency Medicine Emergency Medical Services | DX: R53.82 Chronic fatigue, unspecified (principal); G47.33 Obstructive sleep apnea (adult) (pediatric); R06.83 Snoring; I48.91 Unspecified atrial fibrillation | CPT/HCPCS: 95810 ==

== ENCOUNTER 2020-02-12 12:00 | Emergency (ER) | payer OTHER, SELFPAY ==
[2020-02-12 12:02] VITALS: BP 112/75; PULSE 71; RESP 20; TEMP 36.5; O2SAT 100; BMI 24.5
--- NOTE | 2020-02-12 12:04 | XRR_ITS ---
PROCEDURE INFORMATION: Exam: XR Chest, 1 View Exam date and time: 02/12/2020 12:25 PM Age: 75 years old Clinical indication: Other: Palpitations TECHNIQUE: Imaging protocol: XR of the chest Views: 1 view. COMPARISON: CR XR chest 1V portable [id number] 12/22/2019 8:56 AM FINDINGS: Lungs: Emphysema Lungs are well aerated without a focal area of consolidation. Pleural space: Unremarkable. No pleural effusion. No pneumothorax. Heart/Mediastinum: The cardiac silhouette appears enlarged, some of which is magnification related to the AP projection. Bones/joints: Unremarkable. XR/XR chest 1V portable [id number] IMPRESSION: Lungs are well aerated without a focal area of consolidation.
--- NOTE | 2020-02-12 12:04 | ECG_ITS ---
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 Measurements Intervals [place] Rate: 107 P: FL: -1 QRS: 24 QRSD: 98 T: 51 QT: 326 QTc: 435 Interpretive Statements ATRIAL FIBRILLATION WITH RAPID VENTRICULAR RESPONSE POSSIBLE RIGHT VENTRICULAR CONDUCTION DELAY [RSR (QR) IN V1/V2] ABNORMAL RHYTHM ECG Compared to ECG 12/22/2019 16:06:45 ST (T wave) deviation no longer present Electronically Signed On 02-12-2020 23:42:21 CDT by Belen Seth M.D. [email or web address]
[2020-02-12 12:15] LABS: Basophils # 0.1 10^3/uL (0.0-0.1); Basophils % 0.7 %; Eosinophils # 0.2 10^3/uL (0.0-0.8); Hematocrit 33.7 % (42.0-52.0); Hemoglobin 11.2 g/dL (11.7-16.6); Lymphocytes # 2.3 10^3/uL (0.8-4.8); Lymphocytes % 30.1 %; Mean Corpuscular HGB Conc 33.2 g/dL (30.0-36.0); Mean Corpuscular Hemoglobin 32.7 pg (28.0-34.0); Mean Corpuscular Volume 98.5 fL (80-94); Mean Platelet Volume 9.7 fL (7.4-10.4); Monocytes # 1.1 10^3/uL (0.2-0.9); Monocytes % 13.7 %; Neutrophils # 4.08 10^3/uL (1.8-7.7); Neutrophils % 53.1 %; Nucleated Red Blood Cells % 0 %; Platelet Count 254 10^3/cmm (130-400); Red Blood Count 3.42 10^6/uL (4.1-5.3); Red Cell Distribution Width 12.3 % (12.1-15.1); White Blood Count 7.7 10^3/uL (4.0-10.0)
[2020-02-12 12:26] VITALS: BP 90/60; PULSE 76; RESP 22; O2SAT 100
[2020-02-12] MEDS: sodium chloride 0.9% 1,000 ML 999 ML IV (12:37)
[2020-02-12 13:00] LABS: Troponin(5th) Baseline 17 ng/L (0-15)
[2020-02-12 13:05] LABS: Alanine Aminotransferase 16 U/L (0-41); Albumin Level 3.9 g/dL (3.5-5.2); Alkaline Phosphatase 102 IU/L (40-130); Anion Gap 14.9 (5-19); Aspartate Amino Transferase 21 U/L (0-40); Blood Urea Nitrogen 16 mg/dL (8-23); Calcium 9.3 mg/dL (8.5-10.5); Carbon Dioxide 26 mmol/L (22-29); Chloride 93 mmol/L (98-107); Globulin 2.7 g/dL (1.3-4.6); Glucose 105 mg/dL (65-115); Lipase 36 U/L (13-60); NT Pro B Type Natriuretic Pept 7170 pg/mL (0-125); Osmolality Calculated 265 mOsm/kg (285-295); Potassium 4.9 mmol/L (3.5-5.1); Sodium 129 mmol/L (136-145); Total Bilirubin 0.3 mg/dL (0.15-1.2); Total Protein 6.6 g/dL (6.6-8.7)
[2020-02-12 13:13] LABS: INR 1.33 (0.8-1.2)
--- NOTE | 2020-02-12 13:16 | W.ED.ARRPALP ---
HPI - Arrhythmia/Palpitations General: Chief Complaint: Arrhythmia/Palpitations Stated Complaint: AFIB with RVR Time Seen by Provider: 02/12/20 12:02 Source: patient and EMS Mode of arrival: EMS Limitations: no limitations History of Present Illness: HPI narrative: Mr. Riley is a nice 75-year-old male who comes in by EMS with report of A. fib with RVR. Patient was at the [facility] for routine visit and states he has no symptoms. They noticed a blood pressure of 90/50 with a heart rate of 120 because of this they called EMS. EMS does not report any low blood pressures in route. Patient states he feels fine otherwise. He specifically denies chest pain, shortness of breath, cough, edema, lightheadedness, dizziness, syncope, near syncope or any other complaints. Patient states that he was just going in for routine visit today otherwise he felt fine. EMS did not perform any interventions in route. Associated symptoms: Deny diaphoresis, nausea, pre-syncope, syncope or vomiting Review of Systems Const: Denies: fever(s), chills, body aches, fatigue, malaise or diaphoresis Eyes: Denies: change in vision, blurry vision, photophobia, eye discomfort, eye discharge or eye redness ENMT: Denies: throat pain, odynophagia, hoarseness, swelling of lips/tongue, ear or mastoid pain, ear discharge, change in hearing or nasal discharge Card: Denies: chest pain, palpitations, irregular heart rhythm, edema, lightheadedness, syncope, pre-syncope, dyspnea on exertion or orthopnea Resp: Denies: dyspnea, productive cough, non-productive cough, wheezing, hemoptysis or chest congestion GI: Denies: abdominal pain, nausea, vomiting, hematemesis, coffee ground emesis, heartburn, diarrhea, constipation, GI cramping, hematochezia or melena : Denies: flank pain, dysuria, urinary frequency, urinary urgency or hematuria Musc: Denies: neck pain, back pain, extremity pain, extremity swelling, joint pain, joint swelling, joint redness, joint warmth or joint stiffness Skin/Breast: Denies: rash, pruritus, erythema or skin tenderness Neuro: Denies: headache(s), numbness in extremities, weakness in extremities, sensory changes, lack of coordination, difficulty walking, dizziness, vertigo, confusion, Slurred speech present or seizure-like activity Fredi/Lymph: Denies: easy bruising, easy bleeding, petechiae, purpura or enlarged lymph nodes All/Imm: Denies: urticaria, throat swelling, tongue swelling, facial swelling or acute wheezing PFSH ED PFSH: Medical History (Updated 02/12/20 @ 14:22 by Kay Connor) Atrial fibrillation Rate controlled on metoprolol and Cardizem Chronic kidney disease COPD (chronic obstructive pulmonary disease) Hypertension Pulmonary nodule Varicose vein of leg Surgical History History of shoulder surgery Family History Other CAD (coronary artery disease) Social History Smoking and tobacco status: former smoker Alcohol intake: current Alcohol intake frequency: 3 or more drinks per day Physical Exam Const: COMMON NORMALS: no acute distress, patient oriented x3, no limitations, healthy appearing and well nourished GENERAL APPEARANCE: cooperative, well kempt and well developed HENMT: COMMON NORMALS: normocephalic, atraumatic, external ears normal, EAC's normal and Normal external nose present HEAD & SCALP: normal to inspection, normocephalic and atraumatic FACE & SINUS: normal facial exam and face symmetric NOSE: Normal external nose present and Normal nares present EXTERNAL EAR: Yes external ears normal EXTERNAL AUDITORY CANAL: EAC's normal MOUTH: Normal oral and palatal mucosa present, lip normal and tongue normal Eye: COMMON NORMALS: Equal, round and reactive pupils present and conjunctivae normal GENERAL EYE: appearance normal, both eyes and all related structures ALIGNMENT: Yes alignment normal PERIORBITAL: periorbital findings normal EYELID: eyelids normal CONJUNCTIVA: Yes conjunctivae normal SCLERA: sclerae normal PUPIL: Yes Equal, round and reactive pupils present Neck/C-Spine: COMMON NORMALS: full ROM, no lymphadenopathy, supple, no meningeal signs and no JVD GENERAL: Yes normal visual inspection and Yes trachea midline Chest: COMMONS NORMALS: normal inspection of the chest and normal palpation of entire chest wall Resp: COMMON NORMALS: normal respiratory effort, No retractions, No use of accessory muscles and clear to auscultation bilaterally EFFORT & INSPECTION: Yes able to speak in complete sentences and Yes symmetric chest movement AUSCULTATION: clear to auscultation bilaterally, no crackles, no rales, no rhonchi and no wheezes Cardio: COMMON NORMALS: no JVD, S1 normal heart sound present and S2 normal heart sound present RATE: tachycardic RHYTHM: abnormal rhythm irregularly irregular HEART SOUNDS: S1 normal heart sound present, S2 normal heart sound present, no click, no gallops, no murmurs, no rubs and abnormal split S2 GI: COMMON NORMALS: Soft to palpation and No hepatosplenomegaly present PALPATION: Yes Soft to palpation, No Tenderness to palpation present (GI), No Guarding due to palpation present (GI), No Rigid due to palpation, Yes No hepatosplenomegaly present, No Hernia present, No Palpable mass present and No Pulsatile mass present : COMMON NORMALS: Yes no CVA tenderness BLADDER/KIDNEY EXAM: Yes no CVA tenderness Back/Pelvis: COMMON NORMALS: no CVA tenderness, thoracic and lumbar spine normal to inspection, no thoracic nor lumbar tenderness and thoraco-lumbar ROM normal Extremity: COMMON NORMALS: normal to inspection, full ROM, capillary refill normal, no joint enlargement, no clubbing, cyanosis or edema and no calf tenderness Neuro: COMMON NORMALS: patient oriented x3, CN's II-XII intact bilaterally, moves all extremities, no focal motor deficits and no sensory deficits noted MENINGEAL SIGNS: Yes no meningeal signs SPEECH: speech normal Psych: COMMON NORMALS: mental status grossly normal, Normal thought process present, cooperative, normal affect, speech normal and activity/motor behavior normal APPEARANCE: Yes well kempt SPEECH: Yes normal speech THOUGHT PROCESS: Normal thought process present Skin: COMMON NORMALS: no rashes or lesions noted, turgor normal, no jaundice, no petechiae and no mottling GENERAL SKIN EXAM: no rashes or lesions noted and turgor normal Course Vital Signs: Vital signs: Vital Signs Temperature 97.7 F 02/12/20 12:02 Pulse Rate 74 02/12/20 14:39 Respiratory Rate 20 H 02/12/20 14:39 Blood Pressure 111/79 02/12/20 14:39 Pulse Oximetry 99 02/12/20 14:39 MDM - Arrhythmia/Palpitations MDM Narrative: Medical decision making narrative: Mr. Riley is a nice 75-year-old male who comes in at the behest of the PA after he was found to be in A. fib with RVR. The patient's blood pressures have been stable here. 1 dose of IV Cardizem and his blood pressure is stable and his heart rate is improved. There is no sign of [place]. Patient is asymptomatic with this. I have offered further evaluation and care here to include observation the hospital but the patient adamantly refuses he states hell no I wanna go home . Patient understands he can return here if her symptoms change or worsen but at this time he is adamant he wants to be discharged. Lab Data: Attestation: I reviewed the patient's lab results. Labs: Lab Results 02/12/20 02/12/20 02/12/20 Range/Units 11:50 11:50 11:50 WBC 7.7 (4.0-10.0) 10^3/ uL RBC 3.42 L (4.1-5.3) 10^6/u L Hgb 11.2 L (11.7-16.6) g/dL Hct 33.7 L (42.0-52.0) % MCV 98.5 H (80-94) fL MCH 32.7 (28.0-34.0) pg MCHC 33.2 (30.0-36.0) g/dL RDW 12.3 (12.1-15.1) % Plt Count 254 (130-400) 10^3/c mm MPV 9.7 (7.4-10.4) fL Neut % (Auto) 53.1 % Lymph % (Auto) 30.1 % [place] % (Auto) 13.7 % Eos % (Auto) 2.0 % Baso % (Auto) 0.7 % Neut # (Auto) 4.08 (1.8-7.7) 10^3/u L Lymph # (Auto) 2.3 (0.8-4.8) 10^3/u L [place] # (Auto) 1.1 H (0.2-0.9) 10^3/u L Eos # (Auto) 0.2 (0.0-0.8) 10^3/u L Baso # (Auto) 0.1 (0.0-0.1) 10^3/u L Nucleated RBC % (a uto) 0 % Nucleated RBCs # 0.0 /100WBC PT 16.90 H (12.1-14.9) SECO NDS INR 1.33 H (0.8-1.2) Sodium 129 L (136-145) mmol/L Potassium 4.9 (3.5-5.1) mmol/L Chloride 93 L (98-107) mmol/L Carbon Dioxide 26 (22-29) mmol/L Anion Gap 14.9 (5-19) BUN 16 (8-23) mg/dL Creatinine 1.4 H (0.7-1.2) mg/dL GFR Calculation Not Reportable Glucose 105 (65-115) mg/dL Calculated Osmolal ity 265 L (285-295) mOsm/k g Calcium 9.3 (8.5-10.5) mg/dL Magnesium 2.0 (1.7-2.3) mg/dL Total Bilirubin 0.3 (0.15-1.2) mg/dL AST 21 (0-40) U/L ALT 16 (0-41) U/L Alkaline Phosphata se 102 (40-130) IU/L Troponin T Baselin e (0-15) ng/L Troponin T 120 Min [place] (0-15) ng/L Delta Troponin T (0-10) ABS# NT-Pro-B Natriuret Pep 7170 H (0-125) pg/mL Total Protein 6.6 (6.6-8.7) g/dL Albumin 3.9 (3.5-5.2) g/dL Globulin 2.7 (1.3-4.6) g/dL Lipase 36 (13-60) U/L Urine Color (Yellow) Urine Appearance (CLEAR) Urine pH (5-7) Ur Specific Gravit y (1.005-1.030) Urine Protein (Negative) Urine Glucose (UA) (Normal) Urine Ketones (Negative) Urine Blood (Negative) Urine Nitrate (Negative) Urine Bilirubin (NEGATIVE) Urine Urobilinogen (Negative) mg/dL Ur Leukocyte [place] (Negative) Urine RBC (0-2) /hpf Urine WBC (0-5) /hpf Ur Squamous Epith Cells (0-5) Amorphous Sediment Urine Bacteria (NONE) 08/02/12/20 02/12/20 Range/Units 11:50 12:55 13:45 WBC (4.0-10.0) 10^3/ uL RBC (4.1-5.3) 10^6/u L Hgb (11.7-16.6) g/dL Hct (42.0-52.0) % MCV (80-94) fL MCH (28.0-34.0) pg MCHC (30.0-36.0) g/dL RDW (12.1-15.1) % Plt Count (130-400) 10^3/c mm MPV (7.4-10.4) fL Neut % (Auto) % Lymph % (Auto) % [place] % (Auto) % Eos % (Auto) % Baso % (Auto) % Neut # (Auto) (1.8-7.7) 10^3/u L Lymph # (Auto) (0.8-4.8) 10^3/u L [place] # (Auto) (0.2-0.9) 10^3/u L Eos # (Auto) (0.0-0.8) 10^3/u L Baso # (Auto) (0.0-0.1) 10^3/u L Nucleated RBC % (a uto) % Nucleated RBCs # /100WBC PT (12.1-14.9) SECO NDS INR (0.8-1.2) Sodium (136-145) mmol/L Potassium (3.5-5.1) mmol/L Chloride (98-107) mmol/L Carbon Dioxide (22-29) mmol/L Anion Gap (5-19) BUN (8-23) mg/dL Creatinine (0.7-1.2) mg/dL GFR Calculation Glucose (65-115) mg/dL Calculated Osmolal ity (285-295) mOsm/k g Calcium (8.5-10.5) mg/dL Magnesium (1.7-2.3) mg/dL Total Bilirubin (0.15-1.2) mg/dL AST (0-40) U/L ALT (0-41) U/L Alkaline Phosphata se (40-130) IU/L Troponin T Baselin e 17 H (0-15) ng/L Troponin T 120 Min [place] 15.13 H (0-15) ng/L Delta Troponin T -1.87 L (0-10) ABS# NT-Pro-B Natriuret Pep (0-125) pg/mL Total Protein (6.6-8.7) g/dL Albumin (3.5-5.2) g/dL Globulin (1.3-4.6) g/dL Lipase (13-60) U/L Urine Color Straw (Yellow) Urine Appearance Clear (CLEAR) Urine pH 5 (5-7) Ur Specific Gravit y 1.005 (1.005-1.030) Urine Protein Neg (Negative) Urine Glucose (UA) Norm (Normal) Urine Ketones Negative (Negative) Urine Blood 2+ H (Negative) Urine Nitrate Negative (Negative) Urine Bilirubin Neg (NEGATIVE) Urine Urobilinogen Norm (Negative) mg/dL Ur Leukocyte [place] Negative (Negative) Urine RBC 10-15 H (0-2) /hpf Urine WBC 0-4 H (0-5) /hpf Ur Squamous Epith Cells 0-4 H (0-5) Amorphous Sediment Not Reportable Urine Bacteria Trace (NONE) Imaging Data^: CXR: Attestation: I personally reviewed and interpreted this imaging study as follows: My impression: No acute cardiopulmonary findings. EKG Data^: EKG 1: Attestation: I personally reviewed and interpreted this EKG as follows: EKG interpretation date: 02/12/20 EKG interpretation time: 12:07 Interpretation: Atrial fibrillation with ventricular 207 beats a minute, normal axis, normal QTC, nonspecific ST and T wave changes. Other EKG comments: Chest X-Ray 02/12/20 12:04 IMPRESSION: Lungs are well aerated without a focal area of consolidation. Discharge Plan Discharge Patient Disposition: Home Clinical Impression: Atrial fibrillation Qualifiers: Atrial fibrillation type: longstanding persistent Qualified Code(s): I48.11 - Longstanding persistent atrial fibrillation Condition: Stable Prescriptions: No Action isosorbide mononitrate 30 mg tablet extended release 24 hr 15 mg PO DAILY Qty: 45 RF: 3 diltiazem HCl 180 mg capsule,extended release 24hr 180 mg PO DAILY Qty: 90 RF: 3 albuterol sulfate 2.5 mg /3 mL (0.083 %) Solution For Nebulization 2.5 mg INHALATION Q6H PRN (Reason: Shortness Of Breath) RF: 0 Flomax 0.4 mg Capsule 0.4 mg PO DAILY RF: 0 albuterol sulfate 90 mcg/actuation Hfa Aerosol Inhaler 1 inh INHALATION QID PRN (Reason: Shortness Of Breath) RF: 0 Symbicort 160-4.5 mcg/actuation Hfa Aerosol Inhaler 2 puff INHALATION BID RF: 0 furosemide [Lasix] 40 mg Tablet 40 mg PO DAILY RF: 0 cholecalciferol (vitamin D3) 25 mcg (1,000 unit) Capsule 25 mcg PO DAILY Qty: 0 RF: 0 apixaban 5 mg Tablet 5 mg PO BID RF: 0 aspirin 81 mg Tablet,Delayed Release (Dr/Ec) 81 mg PO DAILY Qty: 30 RF: 0 metoprolol tartrate 50 mg Tablet 50 mg PO Q12H Qty: 60 RF: 0 Discharge Orders: Discharge Order (Routine); Ordered 02/12/20 Ordered By: Kay Connor Referrals: Michael Louis DO [Primary Care Provider] - 1-3 days Discharge Diet: Advance as tolerated Discharge Activity: Increase activity as tolerated Patient Instructions: Atrial Fibrillation (ED) Activity Restrictions/Additional Instructions: Please return to the ER immediately for any of the signs or symptoms listed on your discharge instruction sheets, worsening/changing of your symptoms, you are not getting better as quickly as expected, or for ANY other cause or concerns. If you develop chest pain, shortness of breath, you pass out or nearly pass out, or have any other complaints or concerns please return to the ER for recheck. Discharge Date/Time: 02/12/20 14:38 Coding Level of Care Code ED Psychodramatist for Chg Fwd Exam Comprehensive
[2020-02-12 13:22] VITALS: BP 100/73; PULSE 76; RESP 18; O2SAT 98
[2020-02-12 14:08] LABS: Troponin 5 2HR 15.13 ng/L (0-15)
[2020-02-12 14:09] LABS: Troponin 5 2HR Delta -1.87 ABS# (0-10)
[2020-02-12 14:18] VITALS: BP 105/76; PULSE 74; RESP 22; O2SAT 98
[2020-02-12 14:23] LABS: Add Urine Microscopic? YES; Bilirubin Urine Neg (NEGATIVE); Blood Urine 2+ (Negative); Glucose Urine UA Norm (Normal); Ketones Urine Negative (Negative); Leukocyte Esterase Urine Negative (Negative); Nitrate Urine Negative (Negative); Protein Urine Neg (Negative); Specific Gravity, Urine 1.005 (1.005-1.030); Urine Appearance Clear (CLEAR); Urine Color Straw (Yellow); Urobilinogen Urine Norm (Negative); pH Urine 5 (5-7)
[2020-02-12 14:24] LABS: Bacteria Urine TRACE; Squamous Epithelial Cell Urine 0-4 (0-5); WBC Urine 0-4 /hpf (0-5)
[2020-02-12 14:25] LABS: Add Urine Culture? Yes
[2020-02-12 14:39] VITALS: BP 111/79; PULSE 74; RESP 20; O2SAT 99
== END 2020-02-12 14:38 | disposition home or self-care (01) ==
PROVIDERS: Emergency Provider Emergency Medicine; PCP Emergency Medicine Emergency Medical Services
DX: I48.11 Longstanding persistent atrial fibrillation (principal); Z79.82 Long term (current) use of aspirin; J44.9 Chronic obstructive pulmonary disease, unspecified; I10 Essential (primary) hypertension; Z87.891 Personal history of nicotine dependence; Z79.899 Other long term (current) drug therapy
CPT/HCPCS: 12345; 36415; 71045; 80053; 81001; 83690; 83735; 83880; 84484; 85025; 85610; 87077; 87086; 87186; 93005; 96361; 96374; 96375; 99283; 99284; J3490; J7030

== ENCOUNTER 2020-12-11 12:05 | Outpatient (CLI) | payer OTHER, SELFPAY ==
--- NOTE | 2020-12-11 12:15 | CT_ITS ---
WS: [id number] CT CHEST AND ABDOMEN WITHOUT CONTRAST HISTORY: FOLLOW UP PULMONARY NODULE, RENAL MASS TECHNIQUE: Axial imaging is performed through the chest and abdomen without contrast.. Sagittal and c oronal reformats. All CT scans at [facility] use at least one of these dose optimization techniques: automated exposure control; mA and/or kV adjustment per patient size (includes targeted e xams where dose is matched to clinical indication); or iterative reconstruction. CONTRAST: None DLP: 1465.96 mGycm COMPARISON: 03/31/2019 and 02/22/[address]: Hyperinflated lungs from emphysema. Previously described nodule measuring 6 mm in the RIGHT upper lob e is still present and increased in size. Maximum diameter is now 12.5 mm. This is a cavitary lesion with mild asymmetric wall thickening. Benign granuloma LEFT lower lobe. No additional suspicious mass es. Benign pleural plaque in the LEFT thorax. No pericardial or pleural effusions. Heart is slightly enlarged. Moderate coronary artery calcifications. Moderate amount of calcified kiley que within the aorta. No adenopathy identified. Small hiatal hernia. Abdomen CT: Liver: Normal. Gallbladder: Normally distended with several stones present. Pancreas: Normal. Spleen: Normal. Right kidney: No renal obstruction. Moderate to severe vascular calcifications with perinephric stran ding. There are 2 masses associated with the RIGHT kidney. Upper pole mass measures 17 mm. High densi ty mass measures 22 mm in the lower pole. Neither of these masses has increased in size since 2019. A t that time these masses were noted to be cysts. Left kidney: Perinephric stranding with no obstruction. Extensive vascular calcifications. Indetermin ate mass in the upper pole measures 22 mm in diameter. Noted on the prior study and unchanged in size . Abdominal aorta: Marked atherosclerosis with ectasia. Aneurysmal dilatation of the suprarenal aorta m easuring 3.8 cm in diameter which is stable. Extensive atherosclerosis extending into the renal arter ies and iliac arteries bilaterally. Small mesenteric lymph nodes. No adenopathy appreciated. Gastrointestinal tract: No abnormality. Osseous structures: Advanced degenerative changes in the thoracic and lumbar spines. Degenerative sco liosis. L4 anterolisthesis by [address]/CT chest abdomen wo con IMPRESSION: 1. Increase in size of the cavitary mass in the RIGHT upper lobe since 03/21/20 19. Lung mass has increased in size from 6 to 12.5 mm. Low-grade adenocarcinoma variant should be considered. This would be very difficult to biopsy. Consider PET/CT imaging or [address] contrast follow-up. 2. Chronic emphysema. 3. LEFT pleural calcifications likely related to asbestosis exposure. 4. Bilateral renal masses. Described as cysts on a prior CT from 02/22/2019. Ne w mass or occult mass without IV contrast may be obscured. 5. 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 6. Extensive vascular calcifications in the aorta, renal arteries and iliac ar teries. 7. Cholelithiasis without acute cholecystitis.
== END 2020-12-11 12:06 | disposition home or self-care (01) ==
PROVIDERS: PCP Emergency Medicine Emergency Medical Services; Visit Provider Emergency Medicine Emergency Medical Services
DX: R91.1 Solitary pulmonary nodule (principal); N28.9 Disorder of kidney and ureter, unspecified; K80.20 Calculus of gallbladder without cholecystitis without obstruction; I70.0 Atherosclerosis of aorta; I70.1 Atherosclerosis of renal artery; I70.8 Atherosclerosis of other arteries; I71.4 Abdominal aortic aneurysm, without rupture
CPT/HCPCS: 71250; 74150

== ENCOUNTER 2022-10-09 10:11 | Outpatient (CLI) | payer OTHER, SELFPAY ==
--- NOTE | 2022-10-09 10:30 | USCV_ITS ---
Suresh Riley Age: 77 Gender: M : 1945 Exam Date: 10/09/2022 10:57 Ordering Phys: Michael Louis DO Technologist: [place] [facility] [place]: ? AAA HISTORY: Diameter (cm) AP x Transverse x Length Velocity (cm/s) Waveform Prox Aorta: 2.30 x 2.20 x 47.70 Mid Aorta: 2.13 x 2.30 x 47.10 Distal Aorta: 2.08 x 2.27 x 40.60 Right Iliac Prox: 1.12 x 1.21 x 51.90 Left Iliac Prox: 1.05 x 1.15 x 47.70 Stent Prox Landing x x Aneurysmal Sac Max x x Lt Lat Sac Dim Rt Lat Sac Dim Stent Dist Landing x x Right Iliac Stent x x Left Iliac Stent x x Right Renal Art Left Renal Art FINDINGS: WNL CONCLUSIONS No evidence of abdominal aortic or bilateral iliac aneurysm. Mild arteriovascular disease within the abdominal aorta. Stevo Maya MD (Electronically Signed) Final Date: 09 October 2022 11:53 S
--- NOTE | 2022-10-09 10:30 | US_ITS ---
WS: [id number] RENAL ULTRASOUND HISTORY: HX OF R RENAL MASS COMPARISON: Prior PET/CT 02/22/2021, CT abdomen 12/11/2020 TECHNIQUE: 2-D and color Doppler imaging of the kidney submitted. Right kidney: 11.6 cm x 7.4 cm x 5.6 cm. Cortex: 1.8 cm 2 cysts are identified. One cyst in the superior pole an additional cyst in the inferior pole measuri ng 2.4 x 2.2 x 1.8 cm. No solid mass. No hydronephrosis. Left kidney: 11.1 cm x 6.6 cm x 5.3 cm. Cortex: 1.5 cm Normal echogenicity with no hydronephrosis or mass. Aorta: Ectatic atherosclerosis aorta. Heavily calcified as seen on prior CT imaging. Urinary Bladder: Nondistended. Castro catheter noted. US/US renal BI* [id number] IMPRESSION: 1. No solid mass or hydronephrosis. 2. 2 cysts within the RIGHT kidney.
== END 2022-10-09 10:12 | disposition home or self-care (01) ==
LOC: RAD 10:14
PROVIDERS: PCP Emergency Medicine Emergency Medical Services; Visit Provider Emergency Medicine Emergency Medical Services
DX: I71.21 Aneurysm of the ascending aorta, without rupture (principal); N28.1 Cyst of kidney, acquired
CPT/HCPCS: 76770; 93978